=== PATIENT | female | born 1945 | race Caucasian/White ===

== ENCOUNTER 2016-07-12 15:08 | Emergency (ER) | payer MEDICARE ==
[2016-07-12] MEDS ORDERED: ONDANSETRON HCL/PF 4 MG/ 2ML VIAL IVP ONE (15:44)
[2016-07-12] MEDS ORDERED: HYOSCYAMINE SULFATE 0.125 MG TAB.SUBL SL ONE (15:45)
[2016-07-12] MEDS ORDERED: 0.9 % SODIUM CHLORIDE 1,000 ML IV ONE ×2 (15:58→18:02)
[2016-07-12] MEDS ORDERED: 0.9 % SODIUM CHLORIDE 1,000 ML IV SCH ×2 (16:00→19:00)
[2016-07-12 16:43] LABS: MEAN CORPUSCULAR HEMOGLOBIN 29.1 pg (28.0-34.0); MEAN CORPUSCULAR VOLUME 88.6 fl (80.0-100.0)
[2016-07-12 16:56] LABS: eGFR (African) > 60; eGFR (Non-African) > 60
[2016-07-12 17:10] LABS: MONOCYTES % 4 % (0-11); SEGMENTED NEUTROPHILS % 86 % (39-79)
[2016-07-12 17:42] LABS: APPEARANCE,URINE Cloudy (CLEAR); COLOR,URINE Yellow (YELLOW); OCCULT BLOOD,URINE 2+ (NEGATIVE); UROBILINOGEN URINE 0.2 Eu (0.2-1.0)
[2016-07-12] MEDS ORDERED: PIPERACILLIN SODIUM/TAZOBACTAM 3.375 GM in 0.9 % SODIUM CHLORIDE 50 ML IV ONE (18:57)
[2016-07-12] MEDS ORDERED: ACETAMINOPHEN 500 MG TABLET ONE ×2 (19:38→19:41)
--- NOTE | 2016-07-12 20:02 | ED Physician Documentation ---
Nausea/Vomiting/Diarrhea - HISTORIAN Historian: patient - HPI Stated Complaint: abdominal pain, chest pain, nausea, vomiting, diarrhea Chief Complaint: Nausea,Vomiting,Diarrhea Additional Information: upper abdominal pain, back pain x 3 days, diarrhea/vomiting started 3 days ago Onset: days ago (3) Duration: sudden-onset Last known Well Date: 07/08/16 Last Known Well Time: 00:00 Timing: sudden onset Context: denies: out of country travel, bad food, recent trauma Severity: moderate Further Comments: no - Associated Symptoms Vomiting: frequent Diarrhea: copious Abdominal Pain: moderate, RUQ, LUQ - ROS CONST: fever CVS/RESP: chest pain (across chest) GI/: other (n/v/d) EYES/ENT: none MS/SKIN/LYMPH: other (generalized myalgias). denies: joint pain, leg swelling, rash, swollen glands, ankle swelling NEURO/PSYCH: none - PAST HX Past History: other (renal failure) Other History: hypertension, other (hyperlipidemia) Surgeries/Procedures: other (renal transplant, tubal ligation, chemo fistula) Immunizations: referred to PCP Allergies/Adverse Reactions: Allergies Allergy/AdvReac Type Severity Reaction Status Date / Time adhesive Allergy Verified 07/12/16 16:24 ciprofloxacin Allergy Verified 07/12/16 16:24 clonidine Allergy Verified 07/12/16 16:24 hydrochlorothiazide Allergy Verified 07/12/16 16:24 povidone-iodine Allergy Verified 07/12/16 16:24 [From Betadine] soap [From Betadine] Allergy Verified 07/12/16 16:24 Home Medications: Ambulatory Orders Medication Instructions Recorded Alendronate Sodium [Fosamax] 70 mg PO WEEK 07/12/16 Cyclosporine [Restasis] 1 each OP Q12 07/12/16 Fluticasone Propionate [Flonase 1 spray NS BID 07/12/16 Nasal [place]] Hydrocodone/Acetaminophen [[place] 1 tab PO Q6H PRN 07/12/16 5-325 Tablet] Losartan Potassium [Cozaar] 50 mg PO DAILY 07/12/16 Mineral Oil/Petrolatum,White 3.5 gm OP HS 07/12/16 [Genteal Pm Ointment] Mycophenolate Mofetil 500 mg PO PM 07/12/16 Mycophenolate Mofetil 750 mg PO AM 07/12/16 Propylene Glycol/Peg 400/Pf 1 each OP PRN PRN 07/12/16 [Systane 0.3-0.4% Eye Drops] Simvastatin [Zocor] 80 mg PO DAILY 07/12/16 Sirolimus 1 mg PO DAILY 07/12/16 Venlafaxine HCl [Effexor Xr] 75 mg PO DAILY 07/12/16 Vitamin E (Dl,Tocopheryl Acet) 1,000 unit PO DAILY 07/12/16 [Vitamin E] Zinc [Zinc Chelated] 50 mg PO DAILY 07/12/16 amLODIPine BESYLATE [Norvasc] 5 mg PO 0900 07/12/16 predniSONE [Deltasone] 5 mg PO DAILY 07/12/16 traMADol HCL [Ultram] 50 mg PO Q6H PRN 07/12/16 - SOCIAL HX Smoking History: non-smoker Alcohol Use: none Drug Use: none - FAMILY HX Family History: none - VITAL SIGNS Vital Signs: Vital Signs Temp Pulse Resp BP Pulse Ox 100.3 F H 126 H 20 164/90 92 07/12/16 15:10 07/12/16 15:10 07/12/16 15:10 07/12/16 15:10 07/12/16 15:10 - REVIEWED ASSESSMENTS Nursing Assessment Reviewed: Yes Vitals Reviewed: Yes Progress - Results/Orders Results/Orders: cbc, cmp, pt/ptt/inr, ua ordered - Progress Progress: pt. given 1 liter ns bolus, another at 125cc/hr, .25 mg hyoscyamine p.o., 8 mg zofran ivp, 1000 mg tylenol in er with significant improvement Critical Care Note - Critical Care Note Total Time (mins): 0 ED Results Lab/Radiology - Lab Results Lab Results: Lab Results 07/12/16 07/12/16 07/12/16 17:35 16:25 16:25 WBC RBC Hgb Hct MCV MCH MCHC RDW Plt Count Seg Neutrophils % Band Neutrophils % Lymphocytes % Monocytes % Plt Morphology Comment RBC Morph Comment PT 11.2 Seconds Seconds (9.7-11.5) INR 1.1 (0.9-1.1) APTT 29.0 Seconds Seconds (24.5-32.8) Sodium Potassium Chloride Carbon Dioxide BUN Creatinine Estimated Creat Clear Est GFR ( Amer) Est GFR (Non-Af Amer) Glucose Calcium Total Bilirubin AST ALT Alkaline Phosphatase Troponin I < 0.03 ng/mL L ng/mL (0.03-0.06) Total Protein Albumin Amylase Urine Color Yellow (YELLOW) Urine Appearance Cloudy (CLEAR) Urine pH 6.0 (5.0 - 8.0) Ur Specific [place] 1.025 (1.010-1.030) Urine Protein 2+ mg/dL H mg/dL (NEGATIVE) Urine Ketones 1+ mg/dL H mg/dL (NEGATIVE) Urine Occult Blood 2+ H (NEGATIVE) Urine Nitrite Positive (NEGATIVE) Urine Bilirubin Negative (NEGATIVE) Urine Urobilinogen 0.2 Eu Eu (0.2-1.0) Ur Leukocyte Esterase 1+ H (NEGATIVE) Urine RBC 2-5 H (0-2 HPF) Urine WBC 50-99 H (0-5 HPF) Urine WBC Clumps Present H (NEGATIVE) Ur Squamous Epith Cells Few (NEG-FEW) Urine Bacteria Many H (NEGATIVE) Urine Glucose Negative mg/dL mg/dL (NEGATIVE) 07/12/16 07/12/16 16:25 16:25 WBC 18.80 K/ul H K/ul (4.00-12.00) RBC 5.08 M/ul M/ul (3.90-5.20) Hgb 14.8 g/dL g/dL (12.0-16.0) Hct 45.1 % % (34.5-46.5) MCV 88.6 fl fl (80.0-100.0) MCH 29.1 pg pg (28.0-34.0) MCHC 32.8 g/dL g/dL (30.0-36.0) RDW 13.3 % % (11.3-14.3) Plt Count 192 K/mm3 K/mm3 (130-400) Seg Neutrophils % 86 % H % (39-79) Band Neutrophils % 8 % % (0-12) Lymphocytes % 2 % L % (16-50) Monocytes % 4 % % (0-11) Plt Morphology Comment Normal (NORMAL) RBC Morph Comment Normal (NORMAL) PT INR APTT Sodium 130 mmol/L L mmol/L (136-145) Potassium 3.6 mmol/L mmol/L (3.5-5.0) Chloride 97 mmol/L L mmol/L (98-110) Carbon Dioxide 24 mmol/L mmol/L (20-32) BUN 17 mg/dL mg/dL (10-26) Creatinine 1.2 mg/dL mg/dL (0.4-1.5) Estimated Creat Clear 54 Est GFR ( Amer) > 60 (60 - ) Est GFR (Non-Af Amer) > 60 (60 - ) Glucose 157 mg/dL H mg/dL (70-99) Calcium 9.8 mg/dL mg/dL (8.5-10.5) Total Bilirubin 0.6 mg/dL mg/dL (0.2-1.2) AST 21 U/L U/L (0-41) ALT 12 U/L U/L (0-45) Alkaline Phosphatase 52 U/L U/L (46-116) Troponin I Total Protein 7.7 g/dL g/dL (6.0-8.5) Albumin 4.8 g/dL g/dL (3.0-5.5) Amylase 59 U/L U/L (20-104) Urine Color Urine Appearance Urine pH Ur Specific [place] Urine Protein Urine Ketones Urine Occult Blood Urine Nitrite Urine Bilirubin Urine Urobilinogen Ur Leukocyte Esterase Urine RBC Urine WBC Urine WBC Clumps Ur Squamous Epith Cells Urine Bacteria Urine Glucose - Radiology Radiology Impressions: aas shows no pulmonary infiltrate - Orders Orders: ED Orders Category Date Time Status Place Saline Lock/IV Now Care 07/12/16 15:41 Active ABD SERIES PA CHEST [RAD] Stat Exams 07/12/16 Ordered AMYLASE Routine Lab 07/12/16 16:25 Completed BLOOD CULTURE Routine Lab 07/12/16 15:42 Ordered CBC/PLATELET/DIFF Routine Lab 07/12/16 16:25 Completed CMP Routine Lab 07/12/16 16:25 Completed PT-INR Routine Lab 07/12/16 16:25 Completed PTT Routine Lab 07/12/16 16:25 Completed TROPONIN I (cTnI) Routine Lab 07/12/16 16:25 Completed URINALYSIS Routine Lab 07/12/16 17:35 Completed URINE CULTURE Routine Lab 07/12/16 17:35 Received 0.9 % Sodium Chloride [Normal Saline] 1,000 ml Med 07/12/16 16:00 Ordered IV .Q1H 0.9 % Sodium Chloride [Normal Saline] 1,000 ml Med 07/12/16 19:00 Ordered IV Q8H Acetaminophen [Tylenol Extra Strength] Med 07/12/16 19:38 Discontinued 500 mg .ROUTE .STK-MED ONE Acetaminophen [Tylenol Extra Strength] Med 07/12/16 19:41 Discontinued 500 mg .ROUTE .STK-MED ONE Hyoscyamine Sulfate [Oscimin Sl] Med 07/12/16 15:45 Discontinued 0.25 mg SL NOW ONE Ondansetron HCl/Pf [Zofran 4 mg/2 ml] Med 07/12/16 15:44 Discontinued 8 mg IVP NOW ONE Piperacillin Sodium/Tazobactam [Zosyn] 3.375 gm Med 07/12/16 18:57 Discontinued 0.9 % Sodium Chloride [Sodium Chloride] 50 ml IV 1T EKG WITH COMPARISON Routine Ther 07/12/16 Ordered Nausea Physical Exam - EXAM General Appearance: alert, moderate distress EENT: eye inspection normal, ENT inspection normal, pharynx normal, DEMETRA, no nystagmus, TM's nml Neck: normal inspection, thyroid normal, supple Respiratory: no resp distress, chest non-tender, breath sounds normal CVS: reg rate & rhythm, heart sounds normal, equal pulses, no murmur Abdomen: no organomegaly, tenderness (upper abdomen). No: guarding, rebound Skin: warm/dry, normal color Extremities: non-tender, normal range of motion, no evidence of injury, no edema Neuro/Psych: oriented X3, CN's nml as tested, motor nml, sensation nml, mood/ affect nml, cognition normal Discharge Clincal Impression: urinary tract infection, sepsis, hyponatremia, gastroenteritis Home Medications: Ambulatory Orders Alendronate Sodium [Fosamax] 70 mg PO WEEK 07/12/16 Cyclosporine [Restasis] 1 each OP Q12 07/12/16 Fluticasone Propionate [Flonase Nasal [place]] 1 spray NS BID 07/12/16 Hydrocodone/Acetaminophen [[place] 5-325 Tablet] 1 tab PO Q6H PRN 07/12/16 Losartan Potassium [Cozaar] 50 mg PO DAILY 07/12/16 Mineral Oil/Petrolatum,White [Genteal Pm Ointment] 3.5 gm OP HS 07/12/16 Mycophenolate Mofetil 500 mg PO PM 07/12/16 Mycophenolate Mofetil 750 mg PO AM 07/12/16 Propylene Glycol/Peg 400/Pf [Systane 0.3-0.4% Eye Drops] 1 each OP PRN PRN 07/12 Simvastatin [Zocor] 80 mg PO DAILY 07/12/16 Sirolimus 1 mg PO DAILY 07/12/16 Venlafaxine HCl [Effexor Xr] 75 mg PO DAILY 07/12/16 Vitamin E (Dl,Tocopheryl Acet) [Vitamin E] 1,000 unit PO DAILY 07/12/16 Zinc [Zinc Chelated] 50 mg PO DAILY 07/12/16 amLODIPine BESYLATE [Norvasc] 5 mg PO 0900 07/12/16 predniSONE [Deltasone] 5 mg PO DAILY 07/12/16 traMADol HCL [Ultram] 50 mg PO Q6H PRN 07/12/16 Comments: Case discussed with Dr. Edwards who accepts transfer. Condition: Stable Disposition: 02 XFER SHT-TRM HOSP Decision to Admit: NO Decision Time: 20:00
[2016-07-12 21:27] VITALS: BP 146/91
--- NOTE | 2016-07-12 21:59 | Diagnostic Imaging Report ---
UTE BROWN~ [facility] [address] [address] ~ ~ ~ ~ Report Submission Date: Jul 12, 2016 5:26:22 PM CDT Patient ~ Study Name: LUTHER SHAW ~ Date: Jul 12, 2016 4:40:20 PM CDT ~ Modality Type: CR Gender: F ~ Description: CHEST,ABDOMEN : 47 ~ Institution: [facility] Physician: UTE BROWN ~ ~ ~ ~ Abdomen and chest Clinical history abdominal pain weakness Technique supine abdomen upright abdomen upright chest Findings: There is no free air. No renal calculi are seen. There is aortoiliac vascular calcification. Phleboliths are present in the pelvis. There are old left pubic rami fractures. The lung cross are clear. There is cardiomegaly and aortic atherosclerosis. The bowel gas pattern is nonspecific. Impression: Nonspecific bowel gas pattern Cardiomegaly No acute infiltrate Negative for free air Heavy vascular calcification of the aorta and iliac arteries ~ Electronically signed on Jul 12, 2016 5:26:22 PM CDT by: Rm ZAMUDIO
== END 2016-07-12 20:20 | disposition short-term general hospital (02) ==
LOC: ED 15:08
DX: N39.0 Urinary tract infection, site not specified (principal); A41.9 Sepsis, unspecified organism; K52.9 Noninfective gastroenteritis and colitis, unspecified; E87.1 Hypo-osmolality and hyponatremia
CPT/HCPCS: 36415; 51701; 74022; 80053; 81002; 82150; 84484; 85025; 85610; 85730; 87040; 87086; A9270; J2405; J2543; J7030; 87186; 96361; 96374; 96375; 99284; S1016

== ENCOUNTER 2018-07-28 20:18 | Emergency (ER) | payer MEDICARE ==
--- NOTE | 2018-07-28 20:59 | ED Physician Documentation ---
General Adult - HISTORIAN Historian: patient - HPI Stated Complaint: N/V/D Chief Complaint: General Adult Onset: days ago Timing: still present Severity: moderate Further Comments: yes (Pt is a 72 yo female with c/o n/v/diarrhea that she has had for 3 days. Pt has had > 10 bm's/day, watery with no blood seen. Pt has not had fever. Pt has had dysuria and urgency. Pt has had a kidney transplant.) - ROS CONST: weakness EYES/ENT: none CVS/RESP: none GI/: problems urinating, vomiting, nausea, diarrhea MS/SKIN/LYMPH: none - PAST HX Past History: hypertension, renal disease (kidney transplant), other (HLD) Allergies/Adverse Reactions: Allergies Allergy/AdvReac Type Severity Reaction Status Date / Time adhesive Allergy Verified 07/28/18 20:51 ciprofloxacin Allergy Verified 07/28/18 20:51 clonidine Allergy Verified 07/28/18 20:51 hydrochlorothiazide Allergy Verified 07/28/18 20:51 povidone-iodine Allergy Verified 07/28/18 20:51 [From Betadine] soap [From Betadine] Allergy Verified 07/28/18 20:51 Home Medications: Ambulatory Orders Medication Instructions Recorded Alendronate Sodium [Fosamax] 70 mg PO WEEK 07/12/16 Fluticasone Propionate [Flonase 1 spray NS BID 07/12/16 Nasal [place]] Hydrocodone/Acetaminophen [[place] 1 tab PO Q6H PRN 07/12/16 5-325 Tablet] Losartan Potassium [Cozaar] 50 mg PO DAILY 07/12/16 Mineral Oil/Petrolatum,White 3.5 gm OP HS 07/12/16 [Genteal Pm Ointment] Mycophenolate Mofetil 500 mg PO PM 07/12/16 Mycophenolate Mofetil 750 mg PO AM 07/12/16 Propylene Glycol/Peg 400/Pf 1 each OP PRN PRN 07/12/16 [Systane 0.3-0.4% Eye Drops] Simvastatin [Zocor] 80 mg PO DAILY 07/12/16 Sirolimus 1 mg PO DAILY 07/12/16 Venlafaxine HCl [Effexor Xr] 75 mg PO DAILY 07/12/16 Vitamin E (Dl,Tocopheryl Acet) 1,000 unit PO DAILY 07/12/16 [Vitamin E] Zinc [Zinc Chelated] 50 mg PO DAILY 07/12/16 amLODIPine BESYLATE [Norvasc] 5 mg PO 0900 07/12/16 cycloSPORINE 0.05% OPTH (NF) 1 each OP Q12 07/12/16 [Restasis] predniSONE [Deltasone] 5 mg PO DAILY 07/12/16 traMADol HCL [Ultram] 50 mg PO Q6H PRN 07/12/16 Sulfamethoxazole/Trimethoprim 1 each PO BID #14 tab 07/29/18 [Bactrim Ds] - SOCIAL HX Smoking History: non-smoker - FAMILY HX Family History: No - VITAL SIGNS Vital Signs: Vital Signs Temp Pulse Resp BP Pulse Ox 97.7 F 92 H 14 139/64 99 07/28/18 20:19 07/28/18 20:19 07/28/18 20:19 07/28/18 20:19 07/28/18 20:19 - REVIEWED ASSESSMENTS Nursing Assessment Reviewed: Yes Vitals Reviewed: Yes Progress - Progress Progress: LR 1 L IVF in ER NS 1 L IVF in ER Zosyn 3.375 gm IV in ER Rx Bactrim DS. Take one tablet by mouth every 12 hours for 7 days. 1st does in ER. Follow up with primary provider within one week for recheck of you sodium and potassium blood levels. - EKG/XRAY/CT EKG: NSR (HR=88; normal EKG) General Adult Physical Exam - PHYSICAL EXAM GENERAL APPEARANCE: mild distress EENT: pharynx normal NECK: normal inspection, supple RESPIRATORY: no resp distress, chest non-tender, breath sounds normal CVS: reg rate & rhythm, heart sounds normal ABDOMEN: soft, no organomegaly, normal bowel sounds BACK: normal inspection, no CVA tenderness SKIN: warm/dry, normal color EXTREMITIES: non-tender, normal range of motion, no evidence of injury, no edema NEURO: oriented X3, motor nml, sensation nml Discharge Clincal Impression: Hyponatremia, Renal transplant patient Urinary tract infection Qualifiers: Urinary tract infection type: site unspecified Hematuria presence: with hematuria Qualified Code(s): N39.0 - Urinary tract infection, site not specified Prescriptions: Sulfamethoxazole/Trimethoprim [Bactrim Ds] 1 each PO BID #14 tab Referrals: Primary Doctor,No [Primary Care Provider] - 2 Days Condition: Stable Disposition: 01 HOME, SELF-CARE Decision to Admit: NO Decision Time: 01:09
[2018-07-28] MEDS ORDERED: LACTATED RINGERS 1,000 ML IV.SOLN IV ONE (21:37)
[2018-07-28] MEDS ORDERED: ONDANSETRON HCL/PF 4 MG/ 2ML VIAL IVP ONE (21:38)
[2018-07-28 22:21] LABS: BASOPHILS % 0.5 % (0.0-1.5); EOSINOPHILS % 1.1 % (0.0-6.8); MEAN CORPUSCULAR HEMOGLOBIN 29.1 pg (28.0-34.0); MONOCYTES % 9.5 % (0.0-11.0); NEUTROPHILS # 14.9 # k/uL (1.4-7.7)
[2018-07-28] MEDS ORDERED: 0.9 % SODIUM CHLORIDE 1,000 ML IV ONE (22:56)
[2018-07-29] MEDS ORDERED: PIPERACILLIN SODIUM/TAZOBACTAM 3.375 GM in 0.9 % SODIUM CHLORIDE 100 ML IV ONE (00:17)
[2018-07-29] MEDS ORDERED: SULFAMETHOXAZOLE/TRIMETHOPRIM 800/160MG TAB PO ONE (01:01)
[2018-07-29 01:57] VITALS: BP 142/78
[2018-07-29 06:13] LABS: APPEARANCE,URINE CLOUDY (CLEAR); COLOR,URINE YELLOW (YELLOW); OCCULT BLOOD,URINE 2+ (NEGATIVE); PH URINE 5.5 (5.0 - 8.0); UROBILINOGEN URINE 0.2 Eu (0.2-1.0)
== END 2018-07-29 01:20 | disposition home or self-care (01) ==
LOC: ED 20:18
DX: E87.1 Hypo-osmolality and hyponatremia (principal); N39.0 Urinary tract infection, site not specified; R31.9 Hematuria, unspecified; B96.20 Unspecified Escherichia coli [E. coli] as the cause of diseases classified elsewhere; Z94.0 Kidney transplant status
CPT/HCPCS: 36415; 80053; 81002; 85025; 87086; 93005; 96365; 96375; 99283; 99284; A9270; J2405; J2543; J7030; J7120; S1016

== ENCOUNTER 2018-11-25 10:48 | Emergency (ER) | payer MEDICARE ==
--- NOTE | 2018-11-25 10:54 | ED Physician Documentation ---
Nausea/Vomiting/Diarrhea - HISTORIAN Historian: patient - HPI Stated Complaint: N/V/D Chief Complaint: Nausea,Vomiting,Diarrhea Onset: days ago (4) Duration: constant Last known Well Code/Unknown Code: Unknown Timing: sudden onset Context: denies: out of country travel, bad food, recent trauma Severity: moderate Further Comments: yes (She reports abdominal pain "all over " and she has had nausea vomiting and diarrhea x 4 days. "a little fever" and low back pain. No urinary complaints. No blood in her urine. No chest pain. No food or other exposures. No headache. No shortness of air.) - Associated Symptoms Vomiting: mild (x1 this am ) Diarrhea: mild (none this am ) Abdominal Pain: cramping, moderate, diffuse - ROS CONST: none CVS/RESP: denies: chest pain, shortness of breath, cough, dry cough, non- productive cough GI/: none EYES/ENT: none MS/SKIN/LYMPH: denies: rash NEURO/PSYCH: none - PAST HX Past History: other (Kidney disease transplant 2005 ) Other History: denies: gall stones, colon problems, cardiac disease Surgeries/Procedures: other (kidney transplant ) Immunizations: UTD Allergies/Adverse Reactions: Allergies Allergy/AdvReac Type Severity Reaction Status Date / Time adhesive Allergy Verified 11/25/18 11:43 ciprofloxacin Allergy Verified 11/25/18 11:43 clonidine Allergy Verified 11/25/18 11:43 hydrochlorothiazide Allergy Verified 11/25/18 11:43 povidone-iodine Allergy Verified 11/25/18 11:43 [From Betadine] soap [From Betadine] Allergy Verified 11/25/18 11:43 Home Medications: Ambulatory Orders Medication Instructions Recorded Alendronate Sodium [Fosamax] 70 mg PO WEEK 07/12/16 Fluticasone Propionate [Flonase 1 spray NS BID 07/12/16 Nasal [place]] Losartan Potassium [Cozaar] 50 mg PO DAILY 07/12/16 Mycophenolate Mofetil 500 mg PO PM 07/12/16 Mycophenolate Mofetil 750 mg PO AM 07/12/16 Simvastatin [Zocor] 80 mg PO DAILY 07/12/16 Vitamin E (Dl,Tocopheryl Acet) 1,000 unit PO DAILY 07/12/16 [Vitamin E] amLODIPine BESYLATE [Norvasc] 5 mg PO 0900 07/12/16 cycloSPORINE 0.05% OPTH (NF) 1 each OP Q12 07/12/16 [Restasis] predniSONE [Deltasone] 5 mg PO DAILY 07/12/16 - SOCIAL HX Smoking History: non-smoker Alcohol Use: none Drug Use: none - FAMILY HX Family History: none - VITAL SIGNS Vital Signs: Vital Signs Temp Pulse Resp BP Pulse Ox 97.6 F 90 16 137/65 100 11/25/18 10:49 11/25/18 12:34 11/25/18 10:49 11/25/18 10:49 11/25/18 10:49 - REVIEWED ASSESSMENTS Nursing Assessment Reviewed: Yes Vitals Reviewed: Yes Progress - Progress Progress: 1203: NO vomiting or diarrhea since arrival. No current nausea complaints DG 1214: denies any nausea or pain currently feels the medication has helped her - she would like to try something to eat or drink . No nausea vomiting or diarrhea since in ER. DG 1255: eating and drinking with no nausea or vomiting - she was up to the restroom tolerated well DG ED Results Lab/Radiology - Lab Results Lab Results: Lab Results 11/25/18 11/25/18 11:39 11:39 WBC 17.20 K/ul H K/ul (4.00-12.00) RBC 4.25 M/ul M/ul (3.90-5.20) Hgb 12.3 g/dL g/dL (11.5-16.0) Hct 36.5 % % (34.5-46.5) MCV 86.0 fl fl (80.0-100.0) MCH 29.0 pg pg (28.0-34.0) MCHC 33.8 g/dL g/dL (30.0-36.0) RDW 12.0 % % (11.3-14.3) Plt Count 317 K/mm3 K/mm3 (130-400) Neut % (Auto) 81.2 % H % (39.0-79.0) Lymph % (Auto) 6.7 % L % (16.0-50.0) [place] % (Auto) 10.2 % % (0.0-11.0) Eos % (Auto) 1.2 % % (0.0-6.8) Baso % (Auto) 0.7 % % (0.0-1.5) Neut # (Auto) 14.0 # k/uL H # k/uL (1.4-7.7) Lymph # (Auto) 1.2 # k/uL # k/uL (0.6-4.0) [place] # (Auto) 1.8 # k/uL H # k/uL (0.0-0.9) Eos # (Auto) 0.2 # k/uL # k/uL (0.0-0.6) Baso # (Auto) 0.1 # k/uL # k/uL (0.0-0.5) Sodium 134 mmol/L L mmol/L (137-145) Potassium 3.9 mmol/L mmol/L (3.5-5.1) Chloride 97 mmol/L L mmol/L (98-107) Carbon Dioxide 18 mmol/L L mmol/L (22-30) Anion Gap 22.9 BUN 23 mg/dL H mg/dL (7-17) Creatinine 1.93 mg/dL H mg/dL (0.52-1.04) Est GFR ( Amer) 33 L (60 - ) Est GFR (Non-Af Amer) 27 L (60 - ) Glucose 128 mg/dL H mg/dL (74-106) Calcium 9.4 mg/dL mg/dL (8.4-10.2) Total Bilirubin 0.4 mg/dL mg/dL (0.2-1.3) AST 27 U/L U/L (15-46) ALT 7 U/L L U/L (13-69) Alkaline Phosphatase 81 U/L U/L (38-126) Total Protein 8.1 g/dL g/dL (6.3-8.2) Albumin 4.5 g/dL g/dL (3.5-5.0) - Radiology Radiology Impressions: Abdomin KUB with 1 view chest. Indication: abdominal pain. Nausea. Vomiting. Findings: Frontal view of the chest without prior shows low lung volumes with elevated right hemidiaphragm. Hypoventilatory changes are seen. There is linear right upper lobe presumed atelectasis. The heart size is normal. There is atherosclerotic calcification to the thoracic aorta. Frontal view of the abdomen show no evidence of bowel obstruction or free intraperitoneal air. Impression: Low lung volumes No bowel obstruction Electronically signed on Nov 25, 2018 12:04:38 PM CDT by: Robert Malone - Orders Orders: ED Orders Category Date Time Status Continuous EKG monitoring Q1H Care 11/25/18 11:34 Active IV Started NOW Care 11/25/18 11:33 Active ABD SERIES [ABD SERIES PA CHEST] [RAD] Stat Exams 11/25/18 Ordered CBC/PLATELET/DIFF Stat Lab 11/25/18 11:39 Completed CMP Stat Lab 11/25/18 11:39 Completed UA W/MICRO IF INDICATED Routine Lab 11/25/18 11:34 Ordered 0.9 % Sodium Chloride [Normal Saline] 1,000 ml Med 11/25/18 11:35 Discontinued IV NOW Ondansetron HCl/Pf [Zofran] Med 11/25/18 11:35 Discontinued 4 mg IVP NOW ONE Nausea Physical Exam - EXAM General Appearance: no acute distress, alert EENT: eye inspection normal, no signs of dehydration Neck: normal inspection Respiratory: no resp distress, chest non-tender, breath sounds normal CVS: reg rate & rhythm, heart sounds normal Abdomen: tenderness (diffuse ), other (normal BS ). No: abnml bowel sounds Back: non-tender, painless ROM Skin: warm/dry, normal color Extremities: non-tender, normal range of motion, no evidence of injury, no edema Neuro/Psych: oriented X3 Discharge Clincal Impression: Urinary tract infection Qualifiers: Urinary tract infection type: site unspecified Hematuria presence: without hematuria Qualified Code(s): N39.0 - Urinary tract infection, site not specified Referrals: Primary Doctor,No [Primary Care Provider] - 2 Days Additional Instructions: 1. Macrobid 100 mg take 1 by mouth twice daily x 10 days 2. Increase fluids 3. Zofran 4 mg take 1 by mouth every 8 hours as needed for nausea 4. Follow up with PCP in 2 days 5. Return to ER for any increasing concerns Condition: Stable Disposition: 01 HOME, SELF-CARE Decision to Admit: NO Date of Decison to Admit: 11/25/18 Decision Time: 13:01
[2018-11-25] MEDS ORDERED: ONDANSETRON HCL/PF 4 MG/ 2ML VIAL IVP ONE (11:35)
[2018-11-25] MEDS ORDERED: 0.9 % SODIUM CHLORIDE 1,000 ML IV ONE (11:35)
[2018-11-25 11:39] LABS: BASOPHILS % 0.7 % (0.0-1.5)
[2018-11-25 11:49] LABS: eGFR (Non-African) 27
[2018-11-25 13:30] VITALS: BP 124/63
[2018-11-25 14:02] LABS: APPEARANCE,URINE CLOUDY (CLEAR); COLOR,URINE YELLOW (YELLOW); OCCULT BLOOD,URINE 2+ (NEGATIVE); UROBILINOGEN URINE 0.2 Eu (0.2-1.0)
--- NOTE | 2018-11-26 14:28 | Diagnostic Imaging Report ---
ART ROLDAN [facility] [id number] [facility] [address] [place], [place]. [address] Report Submission Date: Nov 25, 2018 12:04:38 PM CDT Patient Study Name: LUTHER SHAW Date: Nov 25, 2018 11:29:26 AM CDT Modality Type: DX Gender: F Description: ABD SERIES PA CHEST : 47 Institution: [facility] Physician: ART ROLDAN Abdomin KUB with 1 view chest. Indication: abdominal pain. Nausea. Vomiting. Findings: Frontal view of the chest without prior shows low lung volumes with elevated right hemidiaphragm. Hypoventilatory changes are seen. There is linear right upper lobe presumed atelectasis. The heart size is normal. There is atherosclerotic calcification to the thoracic aorta. Frontal view of the abdomen show no evidence of bowel obstruction or free intraperitoneal air. Impression: Low lung volumes No bowel obstruction Electronically signed on Nov 25, 2018 12:04:38 PM CDT by: Robert ZAMUDIO
== END 2018-11-25 13:22 | disposition home or self-care (01) ==
LOC: ED 10:48
DX: N39.0 Urinary tract infection, site not specified (principal); B96.20 Unspecified Escherichia coli [E. coli] as the cause of diseases classified elsewhere
CPT/HCPCS: 36415; 74022; 80053; 81002; 85025; 87086; 87186; 96360; 96374; 99283; 99284; J2405; J7030; S1016

== ENCOUNTER 2019-02-16 10:29 | Emergency (ER) | payer MEDICARE ==
--- NOTE | 2019-02-16 10:53 | ED Physician Documentation ---
Female Urogenital Problems - HISTORIAN Historian: patient - HPI Chief Complaint: Female Urogenital Problems Additional Information: 73 year old female presents with c/o dysuria, frequency, and urgency; started about a week ago with low grade temps; highest of 101; she cant take nsaids d/t kidney transplant. Denies any n/v/d. States sulfa upsets her stomach but no allergy. Onset: days ago Severity: moderate Location of Pain: denies: abdominal pain, pelvic pain, flank pain - Associated Symptoms Urinary Symptoms: frequent urination, discomfort w/ urination, burning w/ urination, pain w/ urination - ROS CONST: fever, chills GI/: denies: nausea, vomiting CVS/RESP: none EYES/ENT: none NEURO/PSYCH: none MS/SKIN/LYMPH: none - PAST HX Past History: other (Afib, HLD, Kidney transplant) Other History: bladder infection Surgeries/Procedures: hysterectomy Immunizations: UTD Allergies/Adverse Reactions: Allergies Allergy/AdvReac Type Severity Reaction Status Date / Time adhesive Allergy Verified 11/25/18 11:43 ciprofloxacin Allergy Verified 11/25/18 11:43 clonidine Allergy Verified 11/25/18 11:43 hydrochlorothiazide Allergy Verified 11/25/18 11:43 povidone-iodine Allergy Verified 11/25/18 11:43 [From Betadine] soap [From Betadine] Allergy Verified 11/25/18 11:43 Home Medications: Ambulatory Orders Medication Instructions Recorded Alendronate Sodium [Fosamax] 70 mg PO WEEK 07/12/16 Fluticasone Propionate [Flonase 1 spray NS BID 07/12/16 Nasal [place]] Losartan Potassium [Cozaar] 50 mg PO DAILY 07/12/16 Mycophenolate Mofetil 500 mg PO PM 07/12/16 Mycophenolate Mofetil 750 mg PO AM 07/12/16 Simvastatin [Zocor] 80 mg PO DAILY 07/12/16 Vitamin E (Dl,Tocopheryl Acet) 1,000 unit PO DAILY 07/12/16 [Vitamin E] amLODIPine BESYLATE [Norvasc] 5 mg PO 0900 07/12/16 cycloSPORINE 0.05% OPTH (NF) 1 each OP Q12 07/12/16 [Restasis] predniSONE [Deltasone] 5 mg PO DAILY 04/28/17 - SOCIAL HX Smoking History: non-smoker Alcohol Use: none Drug Use: none - FAMILY HX Family History: none - VITAL SIGNS Vital Signs: Vital Signs Temp Pulse Resp BP Pulse Ox 124/63 11/25/18 13:29 - REVIEWED ASSESSMENTS Nursing Assessment Reviewed: Yes Vitals Reviewed: Yes ED Results Lab/Radiology - Orders Orders: ED Orders Category Date Time Status URINALYSIS Routine Lab 02/16/19 Ordered Female Urogenital Problems - EXAM General Appearance: no acute distress, alert EENT: eye inspection normal, ENT inspection normal, pharynx normal, no signs of dehydration, DEMETRA Neck: nml inspection Respiratory: breath sounds nml CVS: heart sounds normal Abdomen: soft, non-tender Back: non-tender Skin: color nml, no rash, warm,dry Extremities: normal range of motion Neuro: oriented X3, motor nml, sensation nml, mood/affect nml, cognition normal Discharge Clincal Impression: Urinary tract infection Referrals: Primary Doctor,No [Primary Care Provider] - 2 Days Additional Instructions: Take Augmentin 875mg by mouth twice a day for 10 days >64 oz water Follow up with PCP next week for re-evaluation Condition: Good Disposition: 01 HOME, SELF-CARE Decision to Admit: NO Decision Time: 11:22
[2019-02-16 12:59] VITALS: BP 116/70
[2019-02-16 14:35] LABS: APPEARANCE,URINE CLOUDY (CLEAR); COLOR,URINE YELLOW (YELLOW); OCCULT BLOOD,URINE 2+ (NEGATIVE); UROBILINOGEN URINE 0.2 Eu (0.2-1.0)
== END 2019-02-16 11:10 | disposition home or self-care (01) ==
LOC: ED 10:29
DX: N39.0 Urinary tract infection, site not specified (principal)
CPT/HCPCS: 81002; 87086